=== PATIENT | male | born 2000 | race Caucasian/White ===

== ENCOUNTER 2022-04-20 21:29 | Emergency (ER) | payer BC ==
[~2022-04-20] VITALS: Ht 175.2 cm; Wt 93.7 kg
[2022-04-20 22:19] LABS: BASOPHILS % (AUTO) 0 % (0-10); EOSINOPHILS # (AUTO) 0.1 10^3/uL (0.0-0.3); EOSINOPHILS % (AUTO) 2 % (0-10); HEMATOCRIT 42 % (40-54); HEMOGLOBIN 14.1 g/dL (13.3-17.7); LYMPHOCYTES # (AUTO) 1.7 10^3/uL (1.0-4.0); LYMPHOCYTES % (AUTO) 21 % (12-44); MEAN CORPUSCULAR HEMOGLOBIN 31 pg (25-34); MEAN CORPUSCULAR HGB CONC 34 g/dL (32-36); MEAN CORPUSCULAR VOLUME 91 fL (80-99); MEAN PLATELET VOLUME 11.8 fL (9.0-12.2); MONOCYTES # (AUTO) 0.6 10^3/uL (0.0-1.0); MONOCYTES % (AUTO) 7 % (0-12); NEUTROPHILS # (AUTO) 5.7 10^3/uL (1.8-7.8); NEUTROPHILS % (AUTO) 70 % (42-75); PLATELET COUNT 213 10^3/uL (130-400); WHITE BLOOD COUNT 8.2 10^3/uL (4.3-11.0)
[2022-04-20] MEDS ORDERED: CATHETER FLUSH 10 ML SYR IV PRN (22:30)
[2022-04-20] MEDS ORDERED: NS 100 ML (IVPB) BAG IV ONE (22:30)
[2022-04-20] MEDS ORDERED: IOHEXOL 350 MG/ML 100 ML (OMNIPAQUE 350) VIAL IV ONE (22:30)
[2022-04-20 22:32] LABS: ALBUMIN 4.6 GM/DL (3.2-4.5); CHLORIDE 105 MMOL/L (98-107); POTASSIUM 3.3 MMOL/L (3.6-5.0); SODIUM 142 MMOL/L (135-145)
[2022-04-20 22:33] LABS: CALCIUM 9.5 MG/DL (8.5-10.1)
[2022-04-20 22:34] LABS: GLUCOSE 118 MG/DL (70-105); TOTAL PROTEIN 7.5 GM/DL (6.4-8.2)
[2022-04-20 22:35] LABS: CARBON DIOXIDE 24 MMOL/L (21-32)
[2022-04-20 22:36] LABS: BILIRUBIN,TOTAL 2.7 MG/DL (0.1-1.0)
[2022-04-20 22:38] LABS: ALKALINE PHOSPHATASE 55 U/L (40-136); GFR ESTIMATED 88
[2022-04-20 22:39] LABS: BUN/CREATININE RATIO 12
[2022-04-20 22:41] LABS: ALANINE AMINOTRANSFERASE 18 U/L (0-55)
[2022-04-20] MEDS ORDERED: KETOROLAC 30 MG/ML VIAL IVP ONE (22:45)
--- NOTE | 2022-04-20 22:50 | Diagnostic Imaging Report ---
PROCEDURE: CT abdomen and pelvis with contrast. TECHNIQUE: Multiple contiguous axial images were obtained through the abdomen and pelvis after administration of intravenous contrast. Auto Exposure Controls were utilized during the CT exam to meet ALARA standards for radiation dose reduction. All CT scans use one or more of the following dose optimizing techniques: automated exposure control, MA and/or KvP adjustment based on patient size and exam type or iterative reconstruction. DATE: April 20, 2022. COMPARISON: Right upper quadrant ultrasound June 16, 2012. INDICATION: 21-year-old male, left lower quadrant abdominal pain. FINDINGS: The visualized portions of the lung bases are clear. The heart is not enlarged. There is no pericardial effusion. The liver is unremarkable in size and contour. There is no identified liver lesion. The main, right, and left portal veins are patent. The gallbladder is unremarkable. There is no biliary ductal dilation. Unremarkable appearance of the pancreas. The spleen is normal in size. The adrenal glands are unremarkable. Unremarkable appearance of the renal parenchyma. The urinary collecting systems are not distended. There is a 2 mm stone in the left distal ureter on axial image 143. There is slight dilation of the left ureter and mild left hydronephrosis. The urinary bladder is unremarkable. The intestinal tract is not distended. There is no evidence of acute appendicitis. There is no free intraperitoneal air. There is no drainable fluid collection. There is no free fluid in the abdomen or pelvis. There is no identified abnormally enlarged lymph node in the abdomen or pelvis which meets CT size criteria for adenopathy. There is no identified acute bony abnormality. There are degenerative changes of the lower lumbar spine. IMPRESSION: CT ABDOMEN AND PELVIS. 1. 2 mm stone in the left distal ureter with mild left hydronephrosis. Dictated by: Dictated on workstation # [id number]
[2022-04-20 22:51] LABS: BILIRUBIN,URINE NEGATIVE (NEGATIVE); CLARITY,URINE CLEAR; COLOR,URINE YELLOW; GLUCOSE, URINE (UA) NEGATIVE (NEGATIVE); KETONES,URINE NEGATIVE (NEGATIVE); LEUKOCYTE ESTERASE ,URINE NEGATIVE (NEGATIVE); NITRITE,URINE NEGATIVE (NEGATIVE); PH,URINE 5.5 (5-9); PROTEIN,URINE NEGATIVE (NEGATIVE)
[2022-04-20 22:58] LABS: BACTERIA,URINE NEGATIVE /HPF; CALCIUM OXALATE CRYSTALS,UR RARE /LPF
--- NOTE | 2022-04-20 23:06 | ED General ---
General Chief Complaint: Abdominal/GI Problems Stated Complaint: LLQ PAIN Nursing Triage Note: PT ARRIVAL TO ER WITH COMPLAINT OF ABDOMINAL PAIN SINCE THIS AM. PATIENT STATES THAT EVEN LAYING ON THE FLOOR DIDN'T HELP. PT RATES PAIN 7/10 AND DESCRIBES IT A SHARP PAIN. Source of Information: Patient Exam Limitations: No Limitations History of Present Illness Date Seen by Provider: Apr 20, 2022 Time Seen by Provider: 23:02 Allergies and Home Medications Allergies Coded Allergies: cefdinir (Verified Allergy, Unknown, 04/20/22) dexmethylphenidate (Verified Allergy, Unknown, 04/20/22) Past Witkifc-Mrwcen-Ldfnoe Hx Patient Social History Tobacco Use?: No Use of E-Cig and/or Vaping dev: No Substance use?: No Alcohol Use?: Yes Alcohol type: Beer, Hard Liquor Alcohol Frequency: Couple times a week Pt feels they are or have been: No Immunizations Up To Date Influenza Vaccine Up-to-Date: No; Not Current COVID19 Vaccine Stucco Worker: moderna Physical Exam Vital Signs Vital Signs - First Documented 04/20/22 21:37 Temp 36.7 Pulse 83 Resp 16 B/P (MAP) 145/88 (107) Pulse Ox 100 O2 Delivery Room Air Capillary Refill : Less Than 3 Seconds Height, Weight, BMI Height: '" Weight: lbs. oz. kg; 30.00 BMI Method: Progress/Results/Core Measures Suspected Sepsis SIRS Temperature: Pulse: 83 Respiratory Rate: 16 Laboratory Tests 04/20/22 21:41: White Blood Count 8.2 Blood Pressure 145 /88 Mean: 107 Laboratory Tests 04/20/22 21:41: Creatinine 1.20, Platelet Count 213, Total Bilirubin 2.7H Results/Orders Lab Results Laboratory Tests Test 04/20/22 21:41 04/20/22 22:37 Range/Units White Blood Count 8.2 4.3-11.0 10^3/uL Red Blood Count 4.58 4.30-5.52 10^6/uL Hemoglobin 14.1 13.3-17.7 g/dL Hematocrit 42 40-54 % Mean Corpuscular Volume 91 80-99 fL Mean Corpuscular Hemoglobin 31 25-34 pg Mean Corpuscular Hemoglobin Concent 34 32-36 g/dL Red Cell Distribution Width 12.2 10.0-14.5 % Platelet Count 213 130-400 10^3/uL Mean Platelet Volume 11.8 9.0-12.2 fL Immature Granulocyte % (Auto) 1 % Neutrophils (%) (Auto) 70 42-75 % Lymphocytes (%) (Auto) 21 12-44 % Monocytes (%) (Auto) 7 0-12 % Eosinophils (%) (Auto) 2 0-10 % Basophils (%) (Auto) 0 0-10 % Neutrophils # (Auto) 5.7 1.8-7.8 10^3/uL Lymphocytes # (Auto) 1.7 1.0-4.0 10^3/uL Monocytes # (Auto) 0.6 0.0-1.0 10^3/uL Eosinophils # (Auto) 0.1 0.0-0.3 10^3/uL Basophils # (Auto) 0.0 0.0-0.1 10^3/uL Immature Granulocyte # (Auto) 0.0 0.0-0.1 10^3/uL Sodium Level 142 135-145 MMOL/L Potassium Level 3.3 L 3.6-5.0 MMOL/L Chloride Level 105 98-107 MMOL/L Carbon Dioxide Level 24 21-32 MMOL/L Anion Gap 13 5-14 MMOL/L Blood Urea Nitrogen 14 7-18 MG/DL Creatinine 1.20 0.60-1.30 MG/DL Estimat Glomerular Filtration Rate 88 BUN/Creatinine Ratio 12 Glucose Level 118 H 70-105 MG/DL Calcium Level 9.5 8.5-10.1 MG/DL Corrected Calcium 8.5-10.1 MG/DL Total Bilirubin 2.7 H 0.1-1.0 MG/DL Aspartate Amino Transf (AST/SGOT) 18 5-34 U/L Alanine Aminotransferase (ALT/SGPT) 18 0-55 U/L Alkaline Phosphatase 55 40-136 U/L C-Reactive Protein High Sensitivity 0.08 0.00-0.50 MG/DL Total Protein 7.5 6.4-8.2 GM/DL Albumin 4.6 H 3.2-4.5 GM/DL Urine Color YELLOW Urine Clarity CLEAR Urine pH 5.5 5-9 Urine Specific [place] 1.025 H 1.016-1.022 Urine Protein NEGATIVE NEGATIVE Urine Glucose (UA) NEGATIVE NEGATIVE Urine Ketones NEGATIVE NEGATIVE Urine Nitrite NEGATIVE NEGATIVE Urine Bilirubin NEGATIVE NEGATIVE Urine Urobilinogen 0.2 < = 1.0 MG/DL Urine Leukocyte Esterase NEGATIVE NEGATIVE Urine RBC (Auto) 3+ H NEGATIVE Urine RBC 2-5 H /HPF Urine WBC 2-5 /HPF Urine Squamous Epithelial Cells NONE /HPF Urine Renal Epithelial Cells NONE /HPF Urine Crystals PRESENT H /LPF Urine Calcium Oxalate Crystals RARE H /LPF Urine Bacteria NEGATIVE /HPF Urine Casts NONE /LPF Urine Mucus SMALL H /LPF Urine Culture Indicated NO My Orders Orders - NIKKI LOCK DIRECTOR OF MOBILE MARKETING Ua Culture If Indicated (04/20/22 21:55) Cbc With Automated Diff (04/20/22 22:11) Comprehensive Metabolic Panel (04/20/22 22:11) Hs C Reactive Protein (04/20/22 22:11) Ct Abdomen/Pelvis W (04/20/22 22:11) Iohexol Injection (Omnipaque 350 Mg/Ml 1 (04/20/22 22:30) Sodium Chloride Flush (Catheter Flush Sy (04/20/22 22:30) Ns (Ivpb) (Sodium Chloride 0.9% Ivpb Bag (04/20/22 22:30) Ketorolac Injection (Toradol Injection) (04/20/22 22:45) Medications Given in ED Current Medications Medications Dose Ordered Sig/Ramya Route Start Time Stop Time Status Last Admin Dose Admin Iohexol 100 ml ONCE ONCE IV 04/20/22 22:30 04/20/22 22:31 DC 04/20/22 22:32 80 ML Ketorolac Tromethamine 30 mg ONCE ONCE IVP 04/20/22 22:45 04/20/22 22:46 DC 04/20/22 22:41 30 MG Sodium Chloride 10 ml NEEDED PRN IV 04/20/22 22:30 04/20/22 22:32 10 ML Sodium Chloride 100 ml ONCE ONCE IV 04/20/22 22:30 04/20/22 22:31 DC 04/20/22 22:32 80 ML Vital Signs/I&O 04/20/22 21:37 Temp 36.7 Pulse 83 Resp 16 B/P (MAP) 145/88 (107) Pulse Ox 100 O2 Delivery Room Air Capillary Refill : Less Than 3 Seconds Blood Pressure Mean: 107 Departure Impression Primary Impression: Ureter, calculus Disposition: 01 HOME, SELF-CARE Condition: Stable Departure-Patient Inst. Decision time for Depature: 23:03 Referrals: NO,LOCAL PHYSICIAN (PCP/Family) Primary Care Physician Patient Instructions: How to Strain Your Urine, Kidney Stone Diet Add. Discharge Instructions: Plan: 1. Drink plenty of fluids to help pass stone and flush the contrast medium from your kidneys. Strain all of your urine to monitor for passing of stone. 2. May take Hydrocodone 5/325mg by mouth every 6 hours as needed for severe pain. No driving or drill while taking. 3. Follow up with [facility] for any persistent symptoms. 4. Dr. Flores is the local urologist, you can make an appointment if you have persistent or worsening symptoms. 5. Return for any new, concerning, or worsening symptoms. All discharge instructions reviewed with patient and/or family. Voiced understanding. Scripts Hydrocodone/Acetaminophen (Hydrocodone-Acetamin 5-325 mg) 5 Mg-325 Mg Tablet 1 TAB PO Q6H PRN for PAIN-MODERATE (5-7), #14 TAB 0 Refills Prov: NIKKI LOCK DIRECTOR OF MOBILE MARKETING 04/20/22 Work/School Note: School/Childcare Release Date Seen in the Emergency Department: Apr 20, 2022 Time Dismissed from Emergency Department: 23:23 Return to School: Apr 22, 2022 Other Restrictions Listed Below: Sedating pain managment, no drill in am. NIKKI LOCK DIRECTOR OF MOBILE MARKETING Apr 20, 2022 23:06
[2022-04-20] MEDS ORDERED: ACHD5005 PO (23:20)
[2022-04-20 23:25] VITALS: BP 132/71
== END 2022-04-20 23:39 | disposition home or self-care (01) ==
LOC: ER 21:34
DX: N13.2 Hydronephrosis with renal and ureteral calculous obstruction (principal)
CPT/HCPCS: 36415; 74177; 80053; 81000; 85025; 86141

== ENCOUNTER 2022-04-28 01:14 | Emergency (ER) | payer OTHER ==
[~2022-04-28] VITALS: Ht 175.2 cm; Wt 87.3 kg
[~2022-04-28 01:14] MED LIST: ACHD5005 PO
[2022-04-28 01:34] LABS: BILIRUBIN,URINE NEGATIVE (NEGATIVE); CLARITY,URINE CLEAR; COLOR,URINE YELLOW; GLUCOSE, URINE (UA) NEGATIVE (NEGATIVE); KETONES,URINE NEGATIVE (NEGATIVE); LEUKOCYTE ESTERASE ,URINE NEGATIVE (NEGATIVE); NITRITE,URINE NEGATIVE (NEGATIVE); PH,URINE 5.5 (5-9); PROTEIN,URINE NEGATIVE (NEGATIVE)
[2022-04-28 01:41] LABS: BACTERIA,URINE NEGATIVE /HPF; CALCIUM OXALATE CRYSTALS,UR MODERATE /LPF; RBC,URINE 25-50 /HPF; SQUAMOUS EPITHELIAL CELL,UR RARE /HPF
[2022-04-28] MEDS ORDERED: KETOROLAC 30 MG/ML VIAL IVP ONE (01:45)
[2022-04-28] MEDS ORDERED: LACTATED RINGERS 1,000 ML IV ONE (01:45)
[2022-04-28 02:03] LABS: BASOPHILS % (AUTO) 0 % (0-10); EOSINOPHILS # (AUTO) 0.1 10^3/uL (0.0-0.3); EOSINOPHILS % (AUTO) 1 % (0-10); HEMATOCRIT 43 % (40-54); HEMOGLOBIN 14.6 g/dL (13.3-17.7); LYMPHOCYTES # (AUTO) 1.8 10^3/uL (1.0-4.0); LYMPHOCYTES % (AUTO) 19 % (12-44); MEAN CORPUSCULAR HEMOGLOBIN 31 pg (25-34); MEAN CORPUSCULAR HGB CONC 34 g/dL (32-36); MEAN CORPUSCULAR VOLUME 91 fL (80-99); MEAN PLATELET VOLUME 11.6 fL (9.0-12.2); MONOCYTES # (AUTO) 0.9 10^3/uL (0.0-1.0); MONOCYTES % (AUTO) 9 % (0-12); NEUTROPHILS # (AUTO) 6.8 10^3/uL (1.8-7.8); NEUTROPHILS % (AUTO) 70 % (42-75); PLATELET COUNT 192 10^3/uL (130-400); WHITE BLOOD COUNT 9.6 10^3/uL (4.3-11.0)
[2022-04-28 02:15] LABS: CALCIUM 9.3 MG/DL (8.5-10.1)
[2022-04-28 02:19] LABS: CREATININE SERUM 1.55 MG/DL (0.60-1.30)
[2022-04-28] MEDS ORDERED: OXYC1TAB87 PO (03:54)
[2022-04-28] MEDS ORDERED: SULF1TAB38 PO (03:54)
[2022-04-28] MEDS ORDERED: ONDA4TAB11 PO (03:54)
--- NOTE | 2022-04-28 03:55 | ED GU-Male ---
General Chief Complaint: Back Problems Stated Complaint: LEFT SIDE KIDNEY PAIN Nursing Triage Note: PT ARRIVAL TO ER WITH COMPLAINT OF LEFT SIDE/BACK PAIN. HX OF KIDNEY STONES. PAIN AT 9/10, PATIENT IS IN OBVIOUS DISCOMFORT. Source: patient, old records Exam Limitations: no limitations History of Present Illness Date Seen by Provider: Apr 28, 2022 Time Seen by Provider: 01:20 Allergies and Home Medications Allergies Coded Allergies: cefdinir (Verified Allergy, Unknown, 04/20/22) dexmethylphenidate (Verified Allergy, Unknown, 04/20/22) Patient Home Medication List Hydrocodone/Acetaminophen (Hydrocodone-Acetamin 5-325 mg) 5 Mg-325 Mg Tablet, 1 TAB PO Q6H PRN for PAIN-MODERATE (5-7) Prescribed by: NIKKI LOCK on 04/20/222320 Past Igfnquf-Hpouby-Vuarqx Hx Patient Social History Tobacco Use?: No Use of E-Cig and/or Vaping dev: No Substance use?: No Alcohol Use?: Yes Alcohol type: Beer, Hard Liquor Alcohol Frequency: Couple times a week Pt feels they are or have been: No Immunizations Up To Date Influenza Vaccine Up-to-Date: Yes; Up-to-Date First/Initial COVID19 Vaccinat: 02/11 Second COVID19 Vaccination [place]: 02/11 Third COVID19 Vaccination Date: 02/11 COVID19 Vaccine Community Living Specialist: MALORIE Physical Exam Vital Signs Vital Signs - First Documented 04/28/22 01:29 Temp 36.8 Pulse 89 Resp 16 B/P (MAP) 115/97 (103) Pulse Ox 99 O2 Delivery Room Air Capillary Refill : Less Than 3 Seconds Height, Weight, BMI Height: '" Weight: lbs. oz. kg; 28.00 BMI Method: Progress/Results/Core Measures Suspected Sepsis SIRS Temperature: Pulse: 89 Respiratory Rate: 16 Laboratory Tests 04/28/22 01:56: White Blood Count 9.6 Blood Pressure 115 /97 Mean: 103 Laboratory Tests 04/28/22 01:56: Creatinine 1.55H, Platelet Count 192 Results/Orders Lab Results Laboratory Tests Test 04/28/22 01:23 04/28/22 01:56 Range/Units Urine Color YELLOW Urine Clarity CLEAR Urine pH 5.5 5-9 Urine Specific [place] >=1.030 1.016-1.022 Urine Protein NEGATIVE NEGATIVE Urine Glucose (UA) NEGATIVE NEGATIVE Urine Ketones NEGATIVE NEGATIVE Urine Nitrite NEGATIVE NEGATIVE Urine Bilirubin NEGATIVE NEGATIVE Urine Urobilinogen 0.2 < = 1.0 MG/DL Urine Leukocyte Esterase NEGATIVE NEGATIVE Urine RBC (Auto) 2+ H NEGATIVE Urine RBC 25-50 H /HPF Urine WBC NONE /HPF Urine Squamous Epithelial Cells RARE /HPF Urine Crystals PRESENT H /LPF Urine Calcium Oxalate Crystals MODERATE H /LPF Urine Bacteria NEGATIVE /HPF Urine Casts NONE /LPF Urine Mucus NEGATIVE /LPF Urine Culture Indicated NO White Blood Count 9.6 4.3-11.0 10^3/uL Red Blood Count 4.73 4.30-5.52 10^6/uL Hemoglobin 14.6 13.3-17.7 g/dL Hematocrit 43 40-54 % Mean Corpuscular Volume 91 80-99 fL Mean Corpuscular Hemoglobin 31 25-34 pg Mean Corpuscular Hemoglobin Concent 34 32-36 g/dL Red Cell Distribution Width 12.3 10.0-14.5 % Platelet Count 192 130-400 10^3/uL Mean Platelet Volume 11.6 9.0-12.2 fL Immature Granulocyte % (Auto) 0 % Neutrophils (%) (Auto) 70 42-75 % Lymphocytes (%) (Auto) 19 12-44 % Monocytes (%) (Auto) 9 0-12 % Eosinophils (%) (Auto) 1 0-10 % Basophils (%) (Auto) 0 0-10 % Neutrophils # (Auto) 6.8 1.8-7.8 10^3/uL Lymphocytes # (Auto) 1.8 1.0-4.0 10^3/uL Monocytes # (Auto) 0.9 0.0-1.0 10^3/uL Eosinophils # (Auto) 0.1 0.0-0.3 10^3/uL Basophils # (Auto) 0.0 0.0-0.1 10^3/uL Immature Granulocyte # (Auto) 0.0 0.0-0.1 10^3/uL Sodium Level 143 135-145 MMOL/L Potassium Level 4.0 3.6-5.0 MMOL/L Chloride Level 107 98-107 MMOL/L Carbon Dioxide Level 22 21-32 MMOL/L Anion Gap 14 5-14 MMOL/L Blood Urea Nitrogen 19 H 7-18 MG/DL Creatinine 1.55 H 0.60-1.30 MG/DL Estimat Glomerular Filtration Rate 65 BUN/Creatinine Ratio 12 Glucose Level 108 H 70-105 MG/DL Calcium Level 9.3 8.5-10.1 MG/DL My Orders Orders - RODRIGUEZ RIVAS MD Ua Culture If Indicated (04/28/22 01:20) Basic Metabolic Panel (04/28/22 01:44) Cbc With Automated Diff (04/28/22 01:44) Ed Iv/Invasive Line Start (04/28/22 01:44) Lactated Ringers (Lr 1000 Ml Iv Solution (04/28/22 01:45) Ketorolac Injection (Toradol Injection) (04/28/22 01:45) Abdomen/Kub 1view (04/28/22 02:40) Medications Given in ED Current Medications Medications Dose Ordered Sig/Ramya Route Start Time Stop Time Status Last Admin Dose Admin Ketorolac Tromethamine 30 mg ONCE ONCE IVP 04/28/22 01:45 04/28/22 01:46 DC 04/28/22 01:58 30 MG Lactated Ringer's 1,000 ml @ 0 mls/hr Q0M ONCE IV 04/28/22 01:45 04/28/22 01:46 DC 04/28/22 01:58 999 MLS/HR Vital Signs/I&O 04/28/22 01:29 Temp 36.8 Pulse 89 Resp 16 B/P (MAP) 115/97 (103) Pulse Ox 99 O2 Delivery Room Air Capillary Refill : Less Than 3 Seconds Blood Pressure Mean: 103 Departure Impression Primary Impression: Left ureteral stone Additional Impression: Abdominal pain Qualified Codes: R10.32 - Left lower quadrant pain Disposition: 01 HOME, SELF-CARE Condition: Improved Departure-Patient Inst. Decision time for Depature: 03:51 Referrals: NO,LOCAL PHYSICIAN (PCP) Primary Care Physician TUNG ELLINGTON MD Patient Instructions: Kidney Stone, Adult ED Add. Discharge Instructions: Drink plenty of clear liquids to stay well-hydrated and urinate often. Strain your urine is much as you can. Bring any stones or fragments you collect with you to the follow-up appointment. Continue taking Flomax as previously prescribed. Add the antibiotic as prescribed to prevent infection associated with this stone. You may also fill the Percocet as a stronger pain medication should it be needed as well as Zofran for nausea if needed. Contact Dr. Ellington or the urologist of your choice this week for follow-up. All discharge instructions reviewed with patient and/or family. Voiced understanding. Scripts Sulfamethoxazole/Trimethoprim (Bactrim Ds Tablet) 1 Each Tablet 1 EACH PO BID, #14 TAB Prov: RODRIGUEZ RIVAS MD 04/28/22 Ondansetron (Ondansetron Odt) 4 Mg Tab.rapdis 4 MG PO Q4H PRN for NAUSEA/VOMITING, #10 TAB Prov: RODRIGUEZ RIVAS MD 04/28/22 Oxycodone HCl/Acetaminophen (Percocet 5-325 mg Tablet) 1 Each Tablet 1-2 TAB PO Q4H for PAINMOD MDD 6 TABS, #10 TAB Prov: RODRIGUEZ RIVAS MD 04/28/22 RODRIGUEZ RIVAS MD Apr 28, 2022 03:55
[2022-04-28 03:56] VITALS: BP 111/81
--- NOTE | 2022-04-28 06:12 | Diagnostic Imaging Report ---
INDICATION: abdomen pain. TECHNIQUE: 2 supine radiograph of the abdomen 3:23 AM CORRELATION STUDY: CT 04/20/2022 FINDINGS: Previous CT imaging demonstrated a punctate stone in the distal left ureter. In correlation with the study, this calcification may very likely be present in the low left hemipelvis which would be expected location in the very distal aspect left ureter. No definitive calcification in the renal silhouette. Bowel gas pattern nonobstructed. IMPRESSION: 1. Previously demonstrates punctate calcification distal left ureter appears to be likely present on the left hemipelvis, likely remain in the most distal aspect left ureter. Dictated by: Dictated on workstation # [id number]
== END 2022-04-28 04:01 | disposition home or self-care (01) ==
LOC: EDUNIT# 01:14 → ER 01:18
DX: N20.1 Calculus of ureter (principal)
CPT/HCPCS: 36415; 74018; 80048; 81000; 85025

== ENCOUNTER → 2022-05-08 | Outpatient (CLI) | payer OTHER ==
[~2022-05-08] MED LIST changes: +ONDA4TAB11 PO; +OXYC1TAB87 PO; +SULF1TAB38 PO
--- NOTE | 2022-05-08 13:21 | Diagnostic Imaging Report ---
Indication: Left ureteral calculus. COMPARISON: 04/28/2022 FINDINGS: Multiple frontal radiographic views of the abdomen were obtained. Small bowel loops are nondistended. There is no large collection of free intraperitoneal air. No unexpected extraosseous calcifications or radiopaque foreign bodies are seen. Osseous structures show no gross acute adenitis IMPRESSION: 1. Nonobstructed small bowel gas pattern. Dictated by: Dictated on workstation # [id number]
== END ==
LOC: RAD 09:41
PROVIDERS: ATTEND Urology
DX: N20.1 Calculus of ureter (principal)
CPT/HCPCS: 74018